=== PATIENT | male | born 1995 | race Caucasian/White ===

== ENCOUNTER → 2021-08-25 | Outpatient (CLI) | payer OTHER ==
[2021-08-25 16:22] LABS: African American GFR (CKD) 140.1 (60.0-200.0); Albumin/Globulin Ratio 2.35 (1.60-3.17); Anion Gap 12.2 mmol/L (4.00-12.00); BUN/Creat Ratio 8.85 Ratio (12.00-20.00); Blood Urea Nitrogen 7.8 mg/dL (9.0-27.0); Calcium 9.4 mg/dL (8.7-10.3); Carbon Dioxide 24.8 mmol/L (21.6-31.8); Chol/HDL Ratio 2.83 Ratio; Globulin 2.1 g/dL (1.6-3.3); HDL Cholesterol 50.2 mg/dL (40.00-60.00); Non-African American GFR(CKD) 120.9 (60.0-200.0); Potassium 4.5 mmol/L (3.5-5.5); Total Bilirubin 0.4 mg/dL (0.30-1.20); Total Protein 7.1 g/dL (6.2-8.2); Triglycerides 45.8 mg/dL (0.00-149.00); VLDL Calculation 9.16 mg/dL (5.00-40.00)
[2021-08-25 16:25] LABS: Basophils # (A) 0.03 X 10*3/uL (0.00-0.10); Basophils % (A) 0.5 %; Eosinophils # (A) 0.11 X 10*3/uL (0.04-0.35); Eosinophils % (A) 1.8 %; HCT 45.7 % (39.6-50.0); HGB 14.8 g/dL (13.0-17.0); Lymphocytes # (A) 2.29 X 10*3/uL (0.90-5.00); Lymphocytes % (A) 37.9 %; MCHC 32.4 g/dL (32.0-37.0); MCV 92.5 fL (80.0-97.0); Mean Platelet Volume 13.1 fL (9.5-12.2); Monocytes # (A) 0.39 X 10*3/uL (0.20-1.00); Monocytes % (A) 6.5 %; Platelet Count 192 X 10*3/uL (140-440); RBC 4.94 X 10*6/uL (4.40-5.60); RDW 12.6 % (11.5-14.5); WBC 6.04 X 10*3/uL (4.50-10.00)
[2021-08-25 16:54] LABS: LDL Cholesterol,Direct Reflex 79.5 mg/dL (0.00-129.00)
== END | disposition home or self-care (01) ==
LOC: LABWHC1 09:20
PROVIDERS: ATTEND Pediatrics
DX: Z00.01 Encounter for general adult medical examination with abnormal findings (principal); Z11.59 Encounter for screening for other viral diseases
CPT/HCPCS: 36415; 80053; 80061; 83721; 85025; 86803

== ENCOUNTER → 2021-08-25 | Outpatient (CLI) | payer OTHER ==
--- NOTE | 2021-08-25 09:46 | ECHOF ---
Referral Reason:I35.0 Nonrheumatic aortic (valve) stenosis MEASUREMENTS -------- HEIGHT: 177.8 cm WEIGHT: 81.6 kg BP: RVIDd: 3.5 cm (< 3.3) IVSd: 1.1 cm (0.6 - 1.1) LVIDd: 4.3 cm (3.9 - 5.3) LVPWd: 1.1 cm (0.6 - 1.1) IVSs: 1.7 cm LVIDs: 2.9 cm LVPWs: 1.5 cm LAESV Index (A-L): 15.92 ml/m Ao Diam: 2.8 cm (2.0 - 3.7) AV Cusp: 2.5 cm (1.5 - 2.6) LA Diam: 3.4 cm (2.7 - 3.8) MV EXCURSION: 22.278 mm (> 18.000) MV EF SLOPE: 110 mm/s (70 - 150) EPSS: 0.4 cm MV E Epifanio: 1.03 m/s MV DecT: 199 ms MV A Epifanio: 0.57 m/s MV E/A Ratio: 1.80 AV maxP.60 mmHg AV meanP.91 mmHg AR PHT: 639 ms FINDINGS -------- Sinus rhythm. This was a technically adequate study. The left ventricular size is normal. Left ventricular wall thickness is normal. Overall left vent ricular systolic function is normal with, an EF between 55 - 60 %. The diastolic filling pattern is normal for the age of the patient 10.36. The right ventricle is mildly enlarged. Normal LA size by volume 22+/-6 ml/m2. The right atrial size is normal. Interatrial and interventricular septum intact. The aortic valve is trileaflet and appears structurally normal. There is mild aortic valve sclerosi s. There is [id number] aortic regurgitation. There is no evidence of aortic stenosis. The maximum velocity across the aortic valve is 1.84m/s. Peak/mean gradient across the Aortic Valve is 13.60mmHg / 7.91mmHg. No mitral regurgitation. Trace tricuspid regurgitation present. Unable to estimate RVSP due to inadequate TR jet spectral do ppler profile. There is no pulmonic regurgitation present. The aortic root size is normal. Normal inferior vena cava with normal inspiratory collapse consistent with estimated right atrial pre ssure of 5 mmHg. There is no pericardial effusion. CONCLUSIONS -------- 1. The left ventricular size is normal. 2. Left ventricular wall thickness is normal. 3. Overall left ventricular systolic function is normal with, an EF between 55 - 60 %. 4. The diastolic filling pattern is normal for the age of the patient 10.36 5. The right ventricle is mildly enlarged. 6. There is [id number] aortic regurgitation. BOTTOM CEMENTER: Sharmin Taylor RDCS
--- NOTE | 2021-08-25 13:10 | XR ---
EXAMINATION TYPE: XR cervical spine limited, 3 views DATE OF EXAM: 08/25/2021 Comparison: None Clinical History: 25-year-old male M54.12 Findings: No predental space widening or prevertebral soft tissue swelling. Mild degenerative disc disease C4-C 5 with anterior endplate spondylosis. Alignment is maintained. Disc interspaces are preserved. Normal odontoid view. Impression: Mild degenerative disc disease C4-C5. No prevertebral soft tissue swelling or malalignment.
== END | disposition home or self-care (01) ==
LOC: RADECHMAIN 08:29
PROVIDERS: ATTEND Pediatrics
DX: M50.121 Cervical disc disorder at C4-C5 level with radiculopathy (principal); I35.0 Nonrheumatic aortic (valve) stenosis
CPT/HCPCS: 72040; 93306